=== PATIENT | female | born 1990 | race Caucasian/White ===

== ENCOUNTER 2017-02-12 19:13 | Emergency (ER) | payer MEDICAID ==
--- NOTE | ~2017-02-12 | ER ---
PATIENT'S NAME: LUCIA CANCINO [facility] AGE: 26 Y [address] ROOM: [place] [id number] LOCATION: [facility] ADMIT DATE: 02/12/2017 ER/Outpatient Report DISCHARGE DATE: 02/12/2017 FAMILY PHYSICIAN: PHYSICIAN, NO ATTENDING PHYSICIAN: Katya Orta HISTORY OF PRESENT ILLNESS: This is a 26-year-old female, who presents today with chief complaint of nausea, but no vomiting and diarrhea. This started about 4.5 hours ago. She reports like 3 episodes of diarrhea since then. It is not bloody, it is just watery. She reports that she has other sick contacts at home. Her boyfriend who is with her here says that he has also had nausea, vomiting, and diarrhea as well. She says she has some lower crampy abdominal pain. Of note, she is also 19 weeks . She is G1, P0. This is her first baby, so she was not sure about what she could take for nausea. She also reports fever, chills, but did not take anything for it and she is afebrile here. She describes the pain as cramping. Denies any urinary symptoms. No vaginal bleeding or discharge. PAST MEDICAL HISTORY: Depression, currently 19 weeks , G1, P0. SURGICAL HISTORY: Ear surgery and tonsillectomy. SOCIAL HISTORY: She smokes half a pack per day and has done so for 7 years. Denies any drug or alcohol use. MEDICATIONS: Please see med list. ALLERGIES: SULFA. ROS: Reviewed by me and negative with the exception of those discussed in HPI. PHYSICAL EXAMINATION: VITAL SIGNS: The patient is 5 feet 5 inches; she is 105.9 kilos; blood pressure is 117/65; heart rate is 89; respiratory rate 18; temperature is 97, tympanic; saturating 96% on room air. GENERAL: The patient is well appearing. She is not actively vomiting or retching. She is not running to the bathroom. She says she feels okay right now, just a little bit nauseous and she would like something for the nausea. PATIENT'S NAME: LUCIA CANCINO [facility] AGE: 26 Y [address] ROOM: [place] [id number] LOCATION: [facility] ADMIT DATE: 02/12/2017 ER/Outpatient Report DISCHARGE DATE: 02/12/2017 FAMILY PHYSICIAN: PHYSICIAN, NO ATTENDING PHYSICIAN: Katya Orta HEENT: Pupils are equal and reactive to light. She has no scleral icterus. She has moist mucous membranes. Her throat is clear. HEART: Regular rate and rhythm at this time. She is not tacky. Blood pressure is stable. LUNGS: Lung sounds are clear. ABDOMEN: She has no right upper quadrant tenderness, no right lower quadrant tenderness, no suprapubic tenderness, no left lower quadrant tenderness. Bedside Doppler done. heart rate is 151. SKIN: Warm, dry, and intact. She has good cap refill as well. EMERGENCY DEPARTMENT COURSE: The patient was given Zofran ODT. I reassessed her after 20 minutes, and she said she felt a lot better. She is able to drink fluids as well without any difficulty. So, we will be discharging her home. I gave her a script for some Zofran and she will follow up appropriately. IMPRESSION: Nausea, diarrhea. MD LAZARO PAREDES/susan /[id number] d: 02/13/17 0014 t: 02/16/17 1818, OUTPATIENT REPORT
== END 2017-02-12 19:51 | disposition disaster alternative care site (69) ==
LOC: GMED 19:13
DX: R11.0 Nausea (principal); R19.7 Diarrhea, unspecified; F17.210 Nicotine dependence, cigarettes, uncomplicated; F32.9 Major depressive disorder, single episode, unspecified; Z88.0 Allergy status to penicillin; Z90.89 Acquired absence of other organs; Z79.899 Other long term (current) drug therapy